=== PATIENT | male | born 1965 | race Caucasian/White ===

== ENCOUNTER 2018-08-09 19:54 | Emergency (ER) | payer OTHER ==
[~2018-08-09] VITALS: Ht 175.3 cm; Wt 90.7 kg
[2018-08-09] MEDS ORDERED: LISINOPRIL10 MG PO (20:28)
[2018-08-09] MEDS ORDERED: PLAVIX75 MG PO (20:28)
[2018-08-09] MEDS ORDERED: SPIRONOLACTONE25 MG PO (20:29)
[2018-08-09] MEDS ORDERED: METOPROLOL SUCC50 MG PO (20:29)
[2018-08-09] MEDS ORDERED: ASPIR-LOW81 MG PO (20:30)
[2018-08-09] MEDS ORDERED: LIPITOR20 MG PO (20:31)
[2018-08-09] MEDS ORDERED: FUROSEMIDE40 MG PO (20:31)
[2018-08-09] MEDS ORDERED: MAGNESIUM400 M1 PO (20:32)
[2018-08-09] MEDS ORDERED: XANAX1 MG PO (20:32)
== END 2018-08-09 23:22 | disposition home or self-care (01) ==
LOC: ED 19:54
DX: R19.7 Diarrhea, unspecified (principal); I42.0 Dilated cardiomyopathy; I11.0 Hypertensive heart disease with heart failure; I50.22 Chronic systolic (congestive) heart failure; E78.5 Hyperlipidemia, unspecified; F41.9 Anxiety disorder, unspecified; Z95.810 Presence of automatic (implantable) cardiac defibrillator; Z88.8 Allergy status to other drugs, medicaments and biological substances; Z79.82 Long term (current) use of aspirin; Z79.899 Other long term (current) drug therapy
CPT/HCPCS: 80053; 85025; 87045; 87046; 87493; 96360; 99284-25; J7030

== ENCOUNTER 2018-09-28 17:06 | Observation (INO) | payer OTHER ==
[~2018-09-28] VITALS: Ht 175.3 cm; Wt 86.2 kg
[~2018-09-28 17:06] MED LIST: ASPIR-LOW81 MG PO; FUROSEMIDE40 MG PO; LIPITOR20 MG PO; LISINOPRIL10 MG PO; MAGNESIUM400 M1 PO; METOPROLOL SUCC50 MG PO; PLAVIX75 MG PO; SPIRONOLACTONE25 MG PO; XANAX1 MG PO
[2018-09-28] MEDS ORDERED: FLOMAX0.4 MG PO (17:19)
[2018-09-28] MEDS ORDERED: TRAZODONE HCL50 MG PO (17:20)
[2018-09-28] MEDS ORDERED: IBUPROFEN800 MG PO (17:21)
--- NOTE | 2018-09-28 20:10 | NUR ---
PATIENT ARRIVED TO THE ROOM AT 1999. PATIENT TRANSFERED INDEPENDENTLY TO THE BED FROM THE STRETCHER. TELE 1 PLACED ON PATIENT. VS DONE, WNL. PATIENT PASSED BEDSIDE SWALLOW EVAL WITHOUT CONCERN. DR. VOGEL IN ROOM FOR EVALUATION. PATIENT'S FAMILY LEFT TO GET THE PATIENT SOME FOOD AND WILL RETURN.
--- NOTE | 2018-09-28 20:13 | NUR ---
DR. VOGEL PROVIDED VERBAL ORDER FOR ONE TIME ORTHOSTATIC VS. LAYING: HR 68, BP 135/74 STANDING 1 MIN: HR 87, BP 126/75 STANDING 3 MIN: HR 87, BP 131/79 DENIES LIGHTHEADED OR DIZZINESS
--- NOTE | 2018-09-28 20:50 | NUR ---
PT ASSESSMENT COMPLETE. PT DENIES PAIN, NAUSEA, OR SOB. NO ABNORMALITIES NOTED IN NEURO ASSESSMENT. PT REPORTS SLIGHT NUMBNESS TO HIS L SIDED FACE. STATES THAT IT IS IMPROVED VASTLY FROM EARLIER. PT REPORTS DARK ORANGE TO RED URINE SUBSEQUENT TO TAKING PYRIDIUM AT HOME EARLIER. STATES THAT HE WOKE WITH BACK/FLANK PAIN THIS AM AND SLIGHT BURNING IN URINE. PT REQUESTS ICE WATER AND 7UP. PROVIDED. PT'S FAMILY IS BRINGING DINNER TO PT. PT DENIES FURTHER NEEDS AT THIS TIME. PT ORIENTED TO ROOM BY THIS STUDENT TEACHING COORDINATOR, EDUCATION PROVIDED REGARDING CALL LIGHT USE, CALL LIGHT IN REACH. PT STATES UNDERSTANDING.
--- NOTE | 2018-09-29 00:41 | NUR ---
PT ASSESSMENT COMPLETE. PT DENIES PAIN, NAUSEA, SOB. A&OX4.PT STATES FACIAL NUMBNESS HAS RESOLVED AT THIS TIME, HOWEVER PT'S L LEG AND FOOT FEELS THOUGH IT IS "ASLEEP". CMS IS INTACT. FOOT AND KNEE BOLTER STRENGTH EQUAL. PT UP TO THE BATHROOM AND BACK TO BED WITH SBA. URINE SAMPLE OBTAINED AND SENT TO LAB. PT DENIES FURTHER NEEDS AT THIS TIME. CALL LIGHT IN REACH.
--- NOTE | 2018-09-29 01:58 | NUR ---
V/S AND I&O DONE AND RECORDED BY ARLENE AL AND CHINYERE SCIENTIFIC SPECIALIST.
--- NOTE | 2018-09-29 03:00 | NUR ---
PT RESTING IN BED WITH PILLOW OVER HIS HEAD. RESPIRATIONS EVEN AND UNLABORED. PT APPEARS TO BE SLEEPING. CALL LIGHT IN REACH.
--- NOTE | 2018-09-29 05:00 | NUR ---
PT ASSESSMENT COMPLETE. PT DENIES PAIN, NAUSEA, SOB. PT DENIES FACIAL NUMBESS. PT CONTINUES TO REPORT L FOOT AND LEG NUMBNESS. NATURAL FOODS CLERK AND FOOT STRENGTH EQUAL. NO FACIAL DROOP PRESENT. PT ALERT AND ORIENTED. PT REPORTS GETTING UP TO THE BATHROOM UNASSISTED. PT EDUCATION REINFORCED REGARDING SAFETY, CALLING FOR ASSISTNCE. PT STATES AGREEMENT. CALL LIGHT IN REACH. PT DENIES FURTHER NEEDS AT THIS TIME.
--- NOTE | 2018-09-29 07:28 | NUR ---
Pt sitting up in bed, alert and oriented x3. Pt denies chest pain and sob. Pt denies pain at this time. Pt reporting left foot/facial numbness. Pt states all other deficits have returned to normal aside from thise two things. Equal effervescent salts compounder noted bilat. Smile is even. Pt has no needs. Close to RN station.
--- NOTE | 2018-09-29 08:26 | NUR ---
Medications reconciled with bag of medications brought in to emergency room and interview with
--- NOTE | 2018-09-29 09:06 | NUR ---
Pt having an ECHO done at this time. Will return shortly for am medication pass.
--- NOTE | 2018-09-29 11:10 | NUR ---
PT IS EXPECTING TO RETURN HOME UPON DC.
--- NOTE | 2018-09-29 11:48 | NUR ---
Pt up in hallway working with PT.
--- NOTE | 2018-09-29 12:43 | NUR ---
Pt visiting with family. Pt has no needs at this time. Pt is on ra, resp even and non labored. Pt denies chest pain/sob. Personal supplies and call light within reach.
--- NOTE | 2018-09-29 14:08 | NUR ---
PT ALERT, ORIENTED AND FEELS HE IS IMPROVING. SOME IMPAIRMENT WITH HIS R FOOT SPEECH AND COGNITIVE ABILITY GOOD, R HAND RESPONDING. JEANNIE IN,SHE SEEMS TO BE PLEASANT, AND ATTENTIVE TO PT'S NEEDS. EXTENDED A BLESSING, WILL FOLLOW NEEDED
[2018-09-29] MEDS ORDERED: ATORVASTATIN CA80 MG PO (14:48)
--- NOTE | 2018-09-29 15:40 | NUR ---
PATIENT SITTING UP IN BED. AND RN IN ROOM. FINAL VITAL SIGNS WERE OBTAINED PRIOR TO DISCHARGE FROM THE UNIT
--- NOTE | 2018-09-29 16:29 | NUR ---
FAXED CHART NOTES TO [facility] INCLUDING, FACE SHEET ORDER, ER NOTES AND SUMMARY, H AND P, PROG NOTE, PT EVAL AND TREAT, PT, OT EVAL AND NOTES. REC IEVED FAX CONFIRMATION OF THIS. AG AT [facility] ABOUT THIS PT.
--- NOTE | 2018-09-29 20:15 | EKG ---
[facility] [address] [facility] [place] [address] Signed Normal sinus rhythm Normal ECG Confirmed by VIVEK VOGEL MD ([id number]) on 09/29/2018 8:15:42 PM Electronically Signed By: VIVEK VOGEL MD 09/29/182014 PATIENT NAME: JUAN A FLETCHER Electrocardiogram DATE OF : 67 PHYSICIAN: VIVEK VOGEL MD REPORT #: [id number] REPORT IS CONFIDENTIAL AND NOT TO BE RELEASED WITHOUT AUTHORIZATION
== END 2018-09-29 15:48 | disposition home or self-care (01) ==
LOC: ED 17:06 → MS 17:08
PROVIDERS: ADMIT Internal Medicine
DX: I63.9 Cerebral infarction, unspecified (principal); I42.0 Dilated cardiomyopathy; E78.5 Hyperlipidemia, unspecified; F41.9 Anxiety disorder, unspecified; I11.0 Hypertensive heart disease with heart failure; I65.21 Occlusion and stenosis of right carotid artery; I50.22 Chronic systolic (congestive) heart failure; N40.0 Benign prostatic hyperplasia without lower urinary tract symptoms; F51.04 Psychophysiologic insomnia; K82.8 Other specified diseases of gallbladder; R73.03 Prediabetes; R20.1 Hypoesthesia of skin; R29.702 NIHSS score 2; Z79.1 Long term (current) use of non-steroidal anti-inflammatories (NSAID); Z88.8 Allergy status to other drugs, medicaments and biological substances; Z87.891 Personal history of nicotine dependence; Z95.810 Presence of automatic (implantable) cardiac defibrillator; Z86.73 Personal history of transient ischemic attack (TIA), and cerebral infarction without residual deficits; Z79.02 Long term (current) use of antithrombotics/antiplatelets; Z79.82 Long term (current) use of aspirin; Z79.899 Other long term (current) drug therapy
CPT/HCPCS: 70450; 80053; 80061; 81001; 83036; 84484; 85025; 93005; 93010; 93306; 93880; 96372; 97110; 97162; 99285-25; G0378; J1650